=== PATIENT | female | born 1970 | race Caucasian/White ===

== ENCOUNTER 2018-11-07 08:25 | Emergency (ER) | payer OTHER ==
[~2018-11-07] VITALS: Ht 170.2 cm; Wt 61.4 kg
[2018-11-07] MEDS ORDERED: KETOROLAC TROMETHAMINE 60 MG/2 ML VIAL IM ONE (09:15)
[2018-11-07] MEDS ORDERED: HYDROCODONE/ACETAMINOPHEN 5-325 MG TABLET PO ONE (09:15)
[2018-11-07 10:28] VITALS: BP 129/86
== END 2018-11-07 10:36 | disposition home or self-care (01) ==
LOC: EMS 08:26
DX: M54.40 Lumbago with sciatica, unspecified side (principal); F12.90 Cannabis use, unspecified, uncomplicated; Z59.0 Homelessness
CPT/HCPCS: 96372; 99283; J1885

== ENCOUNTER 2019-12-23 16:15 | Emergency (ER) | payer OTHER ==
[~2019-12-23] VITALS: Ht 170.2 cm; Wt 59.1 kg
[2019-12-23 16:25] VITALS: BP 113/72
== END 2019-12-23 16:31 | disposition left against medical advice (07) ==
LOC: EMS 16:16
DX: R53.1 Weakness (principal); Z53.21 Procedure and treatment not carried out due to patient leaving prior to being seen by health care provider